=== PATIENT | female | born 1950 | race Caucasian/White ===

== ENCOUNTER 2018-01-14 08:20 | Day surgery (SDC) | payer MEDICARE ==
[2018-01-14] MEDS ORDERED: IPRATROPIUM (NEB) 0.5 MG/2.5 ML AMP HHN (12:00)
[2018-01-14] MEDS ORDERED: MEPERIDINE 25 MG INJ IV (12:00)
[2018-01-14] MEDS ORDERED: LABETALOL HCL 20MG INJ IV (12:00)
[2018-01-14] MEDS ORDERED: FENTAnyl 50 MCG/ML VIAL IV ×3 (12:00)
[2018-01-14] MEDS ORDERED: TRIMETHOBENZAMIDE 100 MG/ML VIAL IM (12:00)
[2018-01-14] MEDS ORDERED: EPHEDrine SULFATE 50 MG/5 ML SYG IV (12:00)
[2018-01-14] MEDS ORDERED: DIPHENHYDRAMINE 50 MG INJ IV (12:00)
[2018-01-14] MEDS ORDERED: MIDAZOLAM 1 MG/ML 2 ML INJ IV (12:00)
[2018-01-14] MEDS ORDERED: ALBUTEROL 0.083% (NEB) 2.5 MG/3 ML AMP HHN (12:00)
[2018-01-14] MEDS ORDERED: HYDROmorphONE 1 MG/5 ML IV SYRINGE IV ×2 (12:00)
[2018-01-14] MEDS ORDERED: OXYCODONE/ACETAMINOPHEN (5/325) TAB PO ×2 (12:00)
[2018-01-14] MEDS ORDERED: ISOSULFAN BLUE 1% 5 ML INJ SC (12:09)
[2018-01-14 12:17] LABS: WHITE BLOOD COUNT 4.9 10^3/ul (4.8-10.8)
[2018-01-14 12:17] LABS: ADD MAN DIFF? NO; BASOPHILS % 0.2 % (0.0-2.0); EOSINOPHILS % 0.4 % (0.0-7.0); HEMATOCRIT 29.2 % (37.0-47.0); HEMOGLOBIN 9.5 g/dl (12.0-16.0); LYMPHOCYTES # 1.6 10^3/ul (0.8-2.9); LYMPHOCYTES % 32.4 % (15.0-51.0); MEAN CORPUSCULAR HEMOGLOBIN 32.9 pg (29.0-33.0); MEAN CORPUSCULAR HGB CONC 32.5 g/dl (32.0-37.0); MEAN PLATELET VOLUME 9.5 fl (7.4-10.4); MONOCYTE # 0.5 10^3/ul (0.3-0.9); MONOCYTES % 10.5 % (0.0-11.0); NEUTROPHIL # 2.8 10^3/ul (1.6-7.5); NEUTROPHILS % 56.3 % (39.0-77.0); PLATELET COUNT 199 10^3/UL (140-415); RED BLOOD COUNT 2.89 10^6/ul (4.20-5.40)
[2018-01-14] MEDS: VANCOMYCIN 1 GM 250 ML IVPB (12:17)
[2018-01-14 12:24] LABS: HOLD TRANSMISSIONS 1
[2018-01-14] MEDS: SOD CHLORIDE 0.9% 1,000 ML IV (12:30)
[2018-01-14] MEDS ORDERED: VANCOMYCIN 1 GM (PMX) 250 ML IVPB (12:30)
[2018-01-14 12:40] LABS: ALANINE AMINOTRANSFERASE 28 IU/L (13-69); ALBUMIN 3.9 g/dl (3.3-4.9); ALBUMIN/GLOBULIN RATIO 1.34; ALKALINE PHOSPHATASE 76 IU/L (42-121); ANION GAP 15 (8-16); ASPARTATE AMINO TRANSFERASE 19 IU/L (15-46); BILIRUBIN,INDIRECT 0.4 mg/dl (0-1.1); BILIRUBIN,TOTAL 0.4 mg/dl (0.2-1.3); CALCIUM 9.6 mg/dl (8.4-10.2); CARBON DIOXIDE 30 mmol/L (21-31); CHLORIDE 104 mmol/L (97-110); CREATININE 0.87 mg/dl (0.44-1.00); GLUCOSE 93 mg/dl (70-220); TOTAL PROTEIN 6.8 g/dl (6.1-8.1)
[2018-01-14 12:41] LABS: INR 0.99; PROTIME 13.2 Sec (11.9-14.9)
[2018-01-14 12:42] LABS: PARTIAL THROMBOPLASTIN TIME 29.2 Sec (25.0-35.0)
[2018-01-14 12:43] LABS: BLOOD UREA NITROGEN 22 mg/dl (7-20); POTASSIUM 3.2 mmol/L (3.5-5.1); SODIUM 146 mmol/L (135-144)
[2018-01-14] MEDS ORDERED: CEFAZOLIN 1 GM INJ (12:52)
[2018-01-14] MEDS ORDERED: PROPOFOL 20 ML (12:52)
[2018-01-14] MEDS ORDERED: GLYCOPYRROLATE 0.4 MG INJ (12:52)
[2018-01-14] MEDS ORDERED: NEOSTIGMINE 3 MG/3 ML SYRINGE (12:52)
[2018-01-14] MEDS ORDERED: ROCURONIUM 50 MG INJ (12:52)
[2018-01-14] MEDS ORDERED: MIDAZOLAM 1 MG/ML 2 ML INJ (12:53)
[2018-01-14] MEDS ORDERED: ONDANSETRON 4 MG INJ (12:54)
[2018-01-14] MEDS ORDERED: DEXAMETHASONE 4 MG/ML 1 ML INJ (12:54)
[2018-01-14] MEDS ORDERED: FENTAnyl 50 MCG/ML VIAL (12:54)
[2018-01-14] MEDS: ISOSULFAN BLUE 1% 5 ML INJ SC (13:10)
[2018-01-14] MEDS ORDERED: ACETAMINOPHEN 1000MG/100ML IV 100 ML (13:45)
[2018-01-14] MEDS ORDERED: SUGAMMADEX SODIUM 200 MG/2 ML VIAL IV (13:54)
[2018-01-14] MEDS ORDERED: HYDROCODONE/APAP (7.5/325) TAB PO (14:30)
[2018-01-14] MEDS: hydrALAzine 20 MG INJ IV ×2 (14:34→14:54)
[2018-01-14] MEDS: HYDROmorphONE 1 MG/5 ML IV SYRINGE IV (14:38)
[2018-01-14] MEDS: ONDANSETRON 4 MG INJ IV (16:21)
== END 2018-01-14 16:35 | disposition home or self-care (01) ==
LOC: SDS 08:20
DX: D24.2 Benign neoplasm of left breast (principal); Z85.3 Personal history of malignant neoplasm of breast; E11.9 Type 2 diabetes mellitus without complications; I10 Essential (primary) hypertension
CPT/HCPCS: 19301; 71045; 80053; 82962; 85025; 85610; 85730; 88307; 93005